=== PATIENT | male | born 1995 | race Hispanic/Latino ===

== ENCOUNTER 2017-10-29 17:56 | Emergency (ER) | payer BC ==
[2017-10-29] MEDS ORDERED: Adacel (T-DAP) 0.5 ML VIAL ONE (18:06)
== END 2017-10-29 18:19 | disposition home or self-care (01) ==
LOC: ERS 17:56
DX: S91.332A Puncture wound without foreign body, left foot, initial encounter (principal); F17.210 Nicotine dependence, cigarettes, uncomplicated; W45.0XXA Nail entering through skin, initial encounter; Y99.0 Civilian activity done for income or pay
CPT/HCPCS: 90471; 90715

== ENCOUNTER 2019-03-31 22:19 | Observation (INO) | payer BC ==
[~2019-03-31 22:19] MED LIST: ISOVUE-370 76%-LOCM 1 ML ONE
[2019-03-31] MEDS ORDERED: Ketorolac Tromethamine 30 MG/ML VIAL ONE (22:35)
[2019-03-31 22:53] LABS: #Basophils 0.1 thou/uL (0.0-0.2); #Eosinphils 0.2 thou/uL (0.0-0.7); #Lymphocytes 2.2 thou/uL (1.20-3.40); #Monocytes 1.1 thou/uL (0.11-0.59); #Neutrophils 9.1 thou/uL (1.40-6.50); %Basophils 0.6 % (0.0-1.0); %Eosinophils 1.6 % (0.0-10.0); %Lymphocytes 17.5 % (21.0-51.0); %Monocytes 8.9 % (0.0-10.0); %Neutrophils 71.4 % (42.0-75.0); Hemoglobin 16.3 g/dL (14.0-18.0); Mean Corpuscular HGB CONC 34.4 g/dL (32.0-36.0); Mean Corpuscular Hemoglobin 32.5 pg (27.0-31.0); Mean Corpuscular Volume 94.4 fL (78.0-98.0); Platelet Count 326 thou/uL (130-400); RBC Distribution Width 11.5 % (11.5-14.5); Red Blood Cell (RBC) Count 5.02 mill/uL (4.70-6.10); White Blood Cell (WBC) Count 12.7 thou/uL (4.8-10.8)
[2019-03-31 23:11] LABS: Bilirubin Negative (Negative); Blood, Urine Negative (Negative); Clarity Turbid (Clear); Glucose, Urine (Dipstick) Normal (Negative); Leukocyte Negative Leu/uL (Negative); Nitrite Negative (Negative); Protein, Urine (Dipstick) Negative (Neg-Trace); Urobilinogen Normal mg/dL (Less than 2)
[2019-03-31 23:16] LABS: ALT (SGPT) 28 U/L (8-55); AST (SGOT) 25 U/L (5-34); Albumin 4.8 g/dL (3.5-5.0); Alkaline Phosphatase 77 U/L (40-150); Anion Gap 11 mmol/L (10-20); BUN (Urea Nitrogen) 8 mg/dL (8.9-20.6); Bilirubin, Total 0.6 mg/dL (0.2-1.2); Calc. Creatinine Clearance 0 mL/min (70-130); Calcium 9.9 mg/dL (7.8-10.44); Carbon Dioxide 29 mmol/L (22-29); Chloride 101 mmol/L (98-107); Estimated GFR-MDRD Greater than 90; Globulin 3.1 g/dL (2.4-3.5); Glucose 104 mg/dL (70-105); Lipase 25 U/L (8-78); Potassium 3.6 mmol/L (3.5-5.1); Protein, Total 7.9 g/dL (6.0-8.3); Sodium 137 mmol/L (136-145)
--- NOTE | 2019-03-31 23:25 | CT ---
CT Abdomen Pelvis W Con HISTORY: Right lower quadrant pain since midnight COMPARISON: None. FINDINGS: The lung bases are clear. The liver spleen pancreas and gallbladder regions all appear unremarkable. Right and left adrenal glands and right and left kidneys are normal in size. There is no significant periaortic or mesenteric lymphadenopathy. CT of pelvis performed with contrast enhancement: There is no evidence of pelvic lymphadenopathy or m ass. The appendix is air-filled, there is some minimal. Appendiceal fat stranding adjacent to the tip of the appendix these changes are minimal and therefore equivocal as to their significance. Early appendicitis is not totally excluded as a possibility. IMPRESSION: Minimal fat stranding adjacent to the tip of the appendix the remainder the appendix is a ir-filled with the exception of the tip of the appendix, I cannot exclude the possibly this represents early appendicitis change.
[2019-03-31] MEDS ORDERED: Piperacillin/Tazobactam 3.375 GM VIAL ONE (23:48)
[2019-04-01] MEDS: Dextrose 5 %-0.45 % NaCl 1,000 ML IV SCH ×2 (01:18→09:14)
[2019-04-01 01:25] VITALS: BMI 28.0
[2019-04-01] MEDS ORDERED: cefOXitin Sodium/Dextrose,Iso 2 GM in Premix Bag 1 BAG IVPB SCH (09:45)
[2019-04-01] MEDS ORDERED: Sodium Chloride 0.9% 100 ML ONE (13:42)
[2019-04-01] MEDS ORDERED: cefOXitin 2 GM VIAL ONE (13:42)
[2019-04-01] MEDS: D5 1/2 NS w/20 mEq KCL 1,000 ML IV SCH ×2 (13:43→17:30)
[2019-04-01] MEDS ORDERED: Rocuronium Bromide 10 MG/ML (10ML VIAL) ONE (14:17)
[2019-04-01] MEDS ORDERED: Lidocaine 1% PF 5 ML VIAL ONE (14:17)
[2019-04-01] MEDS ORDERED: Ketorolac Tromethamine 30 MG/ML VIAL ONE (14:17)
[2019-04-01] MEDS ORDERED: Ondansetron PF 4 MG/2 ML Vial ONE (14:17)
[2019-04-01] MEDS ORDERED: Dexamethasone 20 MG/5 ML VIAL ONE (14:17)
[2019-04-01] MEDS ORDERED: PROPOFOL 200 MG/20 ML VIAL ONE (14:17)
[2019-04-01] MEDS ORDERED: Bupivacaine/Epinephrine 0.25% 30 ML VIAL ONE (14:49)
[2019-04-01] MEDS ORDERED: Fentanyl 100 MCG/2 ML VIAL ONE (14:59)
[2019-04-01] MEDS ORDERED: HYDROmorphone 0.5 MG/0.5 ML SYRINGE ONE (14:59)
--- NOTE | 2019-04-01 15:02 | HP ---
CHIEF COMPLAINT: Right lower quadrant abdominal pain. HISTORY OF PRESENT ILLNESS: The patient is a 24-year-old male with a 1-1/2 day history of right lower quadrant pain associated with nausea, no vomiting. No fever. CT scan shows appendicitis. PAST MEDICAL HISTORY: Otherwise, healthy. PAST SURGICAL HISTORY: None. MEDICATIONS: No medications. ALLERGIES: NO KNOWN DRUG ALLERGIES. SOCIAL HISTORY: He works in [email or web address]. He drinks alcohol daily. He says he uses occasional cigarettes, but rare. PHYSICAL EXAMINATION: VITAL SIGNS: Temperature is 98, pulse 106, and blood pressure 135/84. GENERAL: Well-developed, well-nourished male, in no apparent distress. HEENT: Unremarkable. LUNGS: Clear. HEART: Regular rate and rhythm. ABDOMEN: Soft, tender to percussion in right lower quadrant. EXTREMITIES: Unremarkable. LABORATORY DATA: White count 12.7, H and H are 16 and 47, and platelet count 326. Electrolytes are fine. Urinalysis fine. IMAGING DATA: CT scan shows appendiceal fat stranding adjacent to the tip of the appendix for possible appendicitis. ASSESSMENT: Probable appendicitis. PLAN: Laparoscopic appendectomy. CONSENT: I have discussed planned procedure as well as risk of bleeding, infection, injury to bladder, bowel, need to open, he understands, gives informed consent. Job ID: [id number]
[2019-04-01] MEDS ORDERED: Morphine 4 MG/ML VIAL SLOW IVP PRN (15:59)
[2019-04-01] MEDS ORDERED: Dextrose 5% in Water 1,000 ML IV PRN (15:59)
[2019-04-01] MEDS ORDERED: hydrALAZINE 20 MG/ML VIAL SLOW IVP PRN (15:59)
[2019-04-01] MEDS ORDERED: Morphine 2 MG/ML SYRINGE SLOW IVP PRN (15:59)
[2019-04-01] MEDS ORDERED: HYDROcodone/Acetaminophen 10/325 mg Tablet PO PRN ×2 (15:59)
[2019-04-01] MEDS ORDERED: Promethazine HCl 25 MG/ML VIAL IM PRN ×2 (15:59→16:11)
[2019-04-01] MEDS ORDERED: Dextrose 50% Abboject 50 ML SYRINGE SLOW IVP PRN (15:59)
[2019-04-01] MEDS ORDERED: Ondansetron PF 4 MG/2 ML Vial IVP PRN (15:59)
[2019-04-01] MEDS ORDERED: Ketorolac Tromethamine 30 MG/ML VIAL IVP SCH ×2 (16:00→18:00)
[2019-04-01] MEDS ORDERED: HYDROmorphone 2 MG/ML VIAL SLOW IVP PRN (16:11)
[2019-04-01] MEDS ORDERED: Ondansetron HCl/PF 4 MG/2 ML Vial IVP PRN (16:11)
[2019-04-01] MEDS ORDERED: Promethazine HCl 25 MG/ML VIAL SLOW IVP PRN (16:11)
[2019-04-01] MEDS ORDERED: PACU-Morphine 4MG/ML VIAL SLOW IVP PRN (16:11)
[2019-04-01] MEDS ORDERED: Piperacillin/Tazobactam 3.375 GM in Sodium Chloride 0.9% 100 ML IVPB SCH (18:00)
[2019-04-01 18:27] VITALS: BP 122/78; TEMP 98.5
[2019-04-01] MEDS ORDERED: Famotidine/PF 20 mg/2ml Vial SLOW IVP SCH (21:00)
[2019-04-01] MEDS ORDERED: Famotidine 20 MG TAB PO SCH (21:00)
[2019-04-02] MEDS ORDERED: Enoxaparin Sodium 40 MG/0.4 ML SYRINGE SC SCH (09:00)
--- NOTE | 2019-04-03 10:47 | OP ---
DATE OF PROCEDURE: 04/01/2019 PREOPERATIVE DIAGNOSIS: Acute appendicitis. PROCEDURE PERFORMED: Laparoscopic appendectomy. INDICATIONS: This is a 24-year-old male who presents with a 1-day history of right lower quadrant pain associated with nausea. CT showing appendicitis. FINDINGS: Acute suppurative appendicitis in the tip. DESCRIPTION OF PROCEDURE: After informed consent was obtained, the patient was taken to the operating room, given general endotracheal anesthesia, and placed in supine position. Abdomen was prepped and draped in usual fashion. Local anesthesia infiltrated subcutaneously and deep subumbilical incision was performed. Subcutaneous divided sharply, the fascia grasped and 2 stay sutures of 0 Vicryl placed in each side of midline. Midline incised. Digital palpation revealed no local adhesions. A blunt 12 mm trocar inserted. Pneumoperitoneum was created to a pressure of 15 mmHg. A 0 degree laparoscope inserted under direct vision and two 5 mm ports were placed, 1 suprapubic and 1 in the right lateral abdomen. The appendix was found. The tip was encased in omentum and it was inflamed, but non perforated. It was a long appendix. The mesoappendix was divided utilizing the LigaSure. The base of the appendix was divided utilizing the linear 45 mm white load stapler. The appendix was placed in Endosac and removed from the abdomen in the Endosac. Hemostasis was assured. The trocars and retractors removed. The fascia closed with interrupted 0 Vicryl suture. The skin closed with interrupted 4-0 Rapide. Dermabond applied. The patient tolerated the procedure well and transferred to Recovery in good condition. Sponge and needle count verified correct x2. Job ID: [id number]
== END 2019-04-01 18:57 | disposition home or self-care (01) ==
LOC: ERS 22:19 → SURG B 04-01 00:12
PROVIDERS: ADMIT Surgery; ATTEND Surgery
PROC: 0DTJ4ZZ Resection of Appendix, Percutaneous Endoscopic Approach (ICD-10-PCS; principal; 2019-04-01)
DX: K35.80 Unspecified acute appendicitis (principal); F17.210 Nicotine dependence, cigarettes, uncomplicated
CPT/HCPCS: 74177; 80053; 81003; 83690; 85025; 88304; 96361; 96365; 96375; J0694; J1100; J1170; J1885; J2001; J2405; J2543; J2704; J3010; J3490; Q9966

== ENCOUNTER 2022-09-15 20:04 | Emergency (ER) | payer SELFPAY ==
[2022-09-15] MEDS ORDERED: Lorazepam 1 MG TAB ONE (20:33)
== END 2022-09-15 20:38 | disposition home or self-care (01) ==
LOC: ERS 20:04
DX: F10.180 Alcohol abuse with alcohol-induced anxiety disorder (principal); F17.210 Nicotine dependence, cigarettes, uncomplicated
CPT/HCPCS: 99283